=== PATIENT | male | born 1985 | race American Indian/Alaskan Native ===

== ENCOUNTER 2017-10-01 04:12 | Emergency (ER) | payer SELFPAY ==
[2017-10-01] MEDS ORDERED: MOTRIN PO ONE (06:24)
[2017-10-01] MEDS ORDERED: BOOSTRIX IM ONE (12:48)
[2017-10-01] MEDS ORDERED: XYLOCAINE 1% 20 mL INFILTRATI ONE (12:49)
--- NOTE | 2017-10-01 12:58 | Emergency Department Report ---
Abscess Boil HPI - HPI Chief Complaint: Skin/Abscess/Foreign Body Stated Complaint: CYST ON BACK Time Seen by Provider: 10/01/17 12:36 Location: Back Severity: Severe History: Yes Pain, No Fever, No Purulent Drainage, No Numbness, No Foreign Body , No Previous History, No Insect Bite HPI: Mr. Gusman is a healthy 31-year-old male who's had a cyst on his back since age 11. Now it is inflamed and tender. Very painful especially to touch. No recent injuries. No history of fever. No recent trauma. Home Medications: Home Medications Medication Instructions Recorded Confirmed Last Taken No Known Home Medications [No 10/01/17 10/01/17 Unknown Reported Home Medications] Allergies/Adverse Reactions: Allergies Allergy/AdvReac Type Severity Reaction Status Date / Time No Known Allergies Allergy Unverified 10/01/17 06:23 ED Review of Systems ROS: Stated complaint: CYST ON BACK Other details as noted in HPI ED Past Medical Hx - Past Medical History Additional medical history: Cyst on back - Surgical History Past Surgical History?: No - Social History Smoking Status: Never Smoker Substance Use Type: None - Medications Home Medications: Home Medications Medication Instructions Recorded Confirmed Last Taken Type No Known Home Medications [No 10/01/17 10/01/17 Unknown History Reported Home Medications] ED Abscess Boil Physical Exam - Exam General: Vital signs noted. No distress. Alert and acting appropriately. Size: 3 cm Exam: Yes Tenderness, Yes Fluctuance, Yes Surrounding Cellulites/Erythema, Yes Normal Neurologic Exam, Yes Normal Circulation, No Lymphangitis, No Crepitation , No Heart Murmur I & D Note - I & D Note I & D Note: Patient gave verbal informed consent the risks alternatives and benefits of incision and drainage of infected sebaceous cyst. I used Betadine preparation. 6 mm of 2% lidocaine without epinephrine. I made a 3 cm elliptical incision to the right central portion of the cyst. 5 mL of tarango material with kurd cheese like consistency was expressed. I used sterile glove finger to attempt to remove sac. Was able to remove most material. I used 6 sutures of 4-0 Prolene to close and wound ED Course Vital Signs 10/01/17 10/01/17 10/01/17 06:13 12:47 12:48 Temperature 97.5 F L Pulse Rate 71 89 Respiratory 16 18 18 Rate Blood Pressure 149/95 Blood Pressure 147/86 [Right] O2 Sat by Pulse 100 99 99 Oximetry Critical care attestation.: If time is entered above; I have spent that time in minutes in the direct care of this critically ill patient, excluding procedure time. ED Medical Decision Making - Medical Decision Making Mr. Gusman presents with infected sebaceous cyst. I treated patient with incision and drainage according to procedure note. he will be placed on 10 days of Bactrim therapy. He will have sutures removed in 10-14 days. Tetanus booster provided in the ED. ED Disposition Clinical Impression: Infected cyst of skin Disposition: DC-01 TO HOME OR SELFCARE Is pt being admited?: No Does the pt Need Aspirin: No Condition: Good Instructions: Abscess (ED) Additional Instructions: Please have sutures removed in 10-14 days Time of Disposition: 13:30
[2017-10-01] MEDS ORDERED: XYLOCAINE 2% INFILTRATI ONE ×2 (13:01→13:33)
[2017-10-01 13:59] VITALS: BP 123/78
== END 2017-10-01 14:01 | disposition home or self-care (01) ==
LOC: ED 04:12
DX: L02.212 Cutaneous abscess of back [any part, except buttock and flank] (principal)
CPT/HCPCS: 90471; 90715; 99282